=== PATIENT | male | born 1985 | race Caucasian/White ===

== ENCOUNTER → 2017-07-29 | Day surgery (SDC) | payer OTHER ==
[~2017-07-29] MED LIST: CEFAZOLIN SOD 1 GM VIAL ONE; DEXAMETHASONE SOD PHOS INJ 4 MG/ML VIAL ONE; FENTANYL CITRATE/PF 100MCG/2 ML INJ ONE; LIDOCAINE HCL 2% LOCAL INJ 5 ML SDV VIAL INJ ONE; MIDAZOLAM HCL 2 MG/2 ML VIAL ONE; ONDANSETRON HCL INJ 2 MG/ML VIAL ONE; PROPOFOL IV EMULSION 10 MG/ML 20 ML VIAL ONE; SEVOFLURANE INHAL SOLN 250 ML PEN BTL ONE
--- NOTE | 2017-07-29 14:09 | Operative Report ---
DATE OF PROCEDURE: July 29, 2017 HOME DELIVERY DRIVER: Cristofer Boykin PA-C The patient was brought to the operating room for induction of anesthesia. Throughout this case, my PA's assistance was necessary for retraction of soft tissue and positioning of the extremity. This allows for efficient and technically successful execution of the operation and is considered medically necessary. PREOPERATIVE DIAGNOSIS: Right knee medial meniscal tear. POSTOPERATIVE DIAGNOSES 1. Right knee medial meniscal tear. 2. 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 PROCEDURES 1. Right knee arthroscopy. 2. Partial medial meniscectomy. 3. Chondroplasty of the patella and medial femoral condyle. 4. Resection of medial parapatellar plica. INDICATIONS: The patient is a 31-year-old active gentleman who has mechanical symptoms in his right knee. He has failed conservative management and the MRI shows a tear of the anterior horn of the medial meniscus. The findings and options have been discussed. The patient would like to proceed with more definitive intervention. The risks and benefits of arthroscopy have been explained. He states he understands and wishes to proceed. DESCRIPTION OF PROCEDURE: The patient was brought to the operating room and placed under general anesthetic. He received prophylactic antibiotics in the holding area. His right lower extremity was prepped and draped in a sterile manner. A preoperative time out was performed. The extremity had been exsanguinated and a proximal tourniquet was inflated to 300 mmHg. Standard arthroscopy portals were established. The knee was insufflated with sterile saline and systematically inspected. He was noted to have grade II changes of chondromalacia of the undersurface of the patella. The medial compartment was inspected. There was a large radial tear off of the anterior horn of the medial meniscus. There was a large kissing lesion on the medial femoral condyle. There was also a very thickened medial parapatellar plica. The cruciate ligaments were inspected and probed. They were normal. The lateral compartment was completely normal. A combination of biting forceps and mechanical shaver were used to resect the large radial fragment. This was resected from the joint in 2 pieces. The biters and beverley were used to gently contour the medial meniscus. Before and after photographs were taken. The medial femoral condyle was then debrided of any unstable margins of the area of chondromalacia. The medial parapatellar plica was resected. The undersurface of the patella was gently contoured to remove unstable fragments of cartilage. Again, pre and post photographs were taken throughout. The arthroscopic instruments were then removed after thoroughly irrigating the knee. The incisions were closed with nylon stitches. A sterile bandage was applied. The patient was extubated and transported to the recovery room in stable condition. Job#: [id number] [id number]
== END | disposition home or self-care (01) ==
LOC: OR 07:06
PROVIDERS: ATTEND Specialist
DX: S83.241A Other tear of medial meniscus, current injury, right knee, initial encounter (principal); M22.41 Chondromalacia patellae, right knee; M67.51 Plica syndrome, right knee; F17.210 Nicotine dependence, cigarettes, uncomplicated; X58.XXXA Exposure to other specified factors, initial encounter; Z68.31 Body mass index [BMI] 31.0-31.9, adult
CPT/HCPCS: 29881; J0690; J1100; J2001; J2250; J2405